=== PATIENT | female | born 1960 | race Caucasian/White ===

== ENCOUNTER 2020-09-08 14:01 | Emergency (ER) | payer OTHER ==
[2020-09-08 14:12] VITALS: TEMP 98.1; BMI 33.5
[2020-09-08] MEDS ORDERED: BAMLANIVIMAB 700 MG in SODIUM CHLORIDE 250 ML IVPB ONE (14:17)
[2020-09-08 14:53] LABS: BASO % 0.5 % (0-2.0); EOS % 0.4 % (0-4.5); HEMATOCRIT 44.2 % (32.4-45.2); HEMOGLOBIN 14.9 GM/dL (10.7-15.3); LYMPH % 21.4 % (8-40); MCH 31.1 pg (25.7-33.7); MCHC 33.8 g/dl (32.0-36.0); MEAN CELL VOLUME 91.9 fl (80-96); MEAN PLT VOLUME 8.9 fl (7.5-11.1); MONO % 10.9 % (3.8-10.2); NEUT % 66.8 % (42.8-82.8); PLATELET COUNT 245 K/MM3 (134-434); RBC 4.81 M/mm3 (3.60-5.2); RDW 13.3 % (11.6-15.6); WHITE BLOOD COUNT 4.9 K/mm3 (4.0-10.0)
[2020-09-08 15:14] LABS: POTASSIUM 3.7 mmol/L (3.5-5.1)
[2020-09-08 15:27] LABS: BILIRUBIN,TOTAL 0.3 mg/dL (0.2-1); BLOOD UREA NITROGEN 12.2 mg/dL (7-18); CALCIUM 9.3 mg/dL (8.5-10.1); CREATININE 0.8 mg/dL (0.55-1.3); TOT PROT 7.4 g/dl (6.4-8.2)
[2020-09-08 16:49] VITALS: BP 109/56; PULSE 73
== END 2020-09-08 18:13 | disposition home or self-care (01) ==
LOC: JER 14:01 → JCOVINFU 14:01 → JER 18:13
PROC: 3E033GC Introduction of Other Therapeutic Substance into Peripheral Vein, Percutaneous Approach (ICD-10-PCS; principal; 2020-09-08)
DX: U07.1 COVID-19 (principal)
CPT/HCPCS: 36415; 71046-TC-FY; 80053; 85025; 99284-25; M0239; Q0239